=== PATIENT | female | born 2005 | race Caucasian/White ===

== ENCOUNTER 2023-03-15 08:26 | Outpatient (OUT) | payer BC, SELFPAY ==
--- NOTE | 2023-03-15 08:59 | XR_ITS ---
The [address] [address] Patient Name: FREDY PENA MRN: [id number] date: 2005 Sex: F Assigned Patient Location: LAB Current Patient Location: LAB Accession/Order Number: [id number] Exam Date: 03/15/2023 09:00 Report Date: 03/15/2023 09:17 At the request of: TONYA MEMBRENO Procedure: XR chest 2V EXAMINATION: XR chest 2V HISTORY: History Of Pneumonia Z87.01 , follow-up COMPARISON: No relevant comparison available. FINDINGS: LUNGS: No significant pulmonary parenchymal abnormalities. VASCULATURE: No increased pulmonary vasculature. PLEURA: No pneumothorax, effusion, or pleural thickening. CARDIAC: No cardiomegaly or cardiac silhouette abnormality. MEDIASTINUM: No visible mass or adenopathy. BONES: No fracture or visible bone lesion. OTHER: Negative. IMPRESSION: 1. Normal examination. Electronically authenticated by: HEBER LORENZANA Date: 03/15/2023 09:17
[2023-03-15 09:15] LABS: Basophils Absolute Auto 0.1 10^3/uL (0.0-0.1); Basophils Percent Auto 0.9 % (0.2-2.0); Eosinophils Absolute Auto 0.5 10^3/uL (0.0-0.7); Eosinophils Percent Auto 9.7 % (0.9-7.0); Hematocrit 42.8 % (36.0-48.0); Immature Granulocytes Abs Auto 0.02 10^3/uL (0.00-0.03); Immature Granulocytes Pct Auto 0.4 % (0.0-0.5); Lymphocytes Absolute Auto 1.4 10^3/uL (1.2-3.8); Lymphocytes Percent Auto 25.8 % (20.5-60.0); Mean Corpuscular HGB Conc 32.7 g/dL (29.9-35.2); Mean Corpuscular Hemoglobin 28.6 pg (26.7-34.0); Mean Corpuscular Volume 87.3 fL (81.0-99.0); Mean Platelet Volume 10.3 fL (9.5-13.5); Monocytes Absolute Auto 0.7 10^3/uL (0.3-0.8); Monocytes Percent Auto 12.2 % (1.7-12.0); Neutrophils Absolute Auto 2.7 10^3/uL (1.4-6.5); Nucleated Red Blood Cells 0; Platelet Count 222 10^3/uL (150-450); Red Cell Distribution Width 13.1 % (11.0-15.0); White Blood Count 5.3 10^3/uL (4.0-11.0)
[2023-03-15 09:37] LABS: Alanine Aminotransferase 25 U/L (14-59); Albumin Globulin Ratio 1.2; Albumin Level 4.3 g/dL (3.4-5.0); Alkaline Phosphatase 78 U/L (46-116); Anion Gap 12.6; Aspartate Amino Transferase 17 U/L (15-37); BUN Creatinine Ratio 16.8; Bilirubin Total 2.1 mg/dL (0.2-1.0); Calcium 9.1 mg/dL (8.5-10.1); Carbon Dioxide 29.6 mmol/L (21.0-32.0); Chloride 104 mmol/L (98-107); Estimated GFR (African America >60 (>=60); Estimated GFR (Non-African Ame >60 (>=60); Globulin 3.6 g/dL; Glucose 86 mg/dL (74-106); Potassium 4.2 mmol/L (3.5-5.1); Sodium 142 mmol/L (136-145); Total Protein 7.9 g/dL (6.4-8.2)
[2023-03-15 09:49] LABS: Thyroid Stimulating Hormone 34.189 uIU/mL (0.358-3.740)
[2023-03-16 04:12] LABS: Immunoglobulin A, Qn 130 mg/dL (87-352)
[2023-03-16 15:12] LABS: t-Transglutaminase (tTG) IgA <2 U/mL (0-3)
== END 2023-03-15 08:27 ==
PROVIDERS: PCP Internal Medicine; Visit Provider Internal Medicine
DX: Z00.00 Encounter for general adult medical examination without abnormal findings (principal); Z87.01 Personal history of pneumonia (recurrent)
CPT/HCPCS: 36415; 71046; 80053; 82728; 82784; 84443; 85025; 86364

== ENCOUNTER 2023-03-27 12:46 | Outpatient (OUT) | payer BC, SELFPAY ==
[2023-03-27 13:36] LABS: Thyroid Stimulating Hormone 25.757 uIU/mL (0.358-3.740)
[2023-03-27 14:26] LABS: Free T4 0.55 ng/dL (0.76-1.46)
[2023-03-28 08:12] LABS: Thyroid Peroxidase (TPO) Ab 556 IU/mL (0-34)
== END 2023-03-27 12:47 ==
LOC: LAB 12:48
PROVIDERS: PCP Internal Medicine; Visit Provider Internal Medicine
DX: R79.89 Other specified abnormal findings of blood chemistry (principal)
CPT/HCPCS: 36415; 84439; 84443; 86376

== ENCOUNTER 2023-05-03 12:47 | Outpatient (OUT) | payer BC, SELFPAY | END 2023-05-03 12:48 | disposition home or self-care (01) | LOC: LAB 12:48 | PROVIDERS: PCP Internal Medicine; Visit Provider Internal Medicine | DX: R79.89 Other specified abnormal findings of blood chemistry (principal) | CPT/HCPCS: 36415; 84443 ==

== ENCOUNTER 2023-07-27 11:27 | Outpatient (OUT) | payer BC, SELFPAY ==
[2023-07-27 12:21] LABS: Basophils Absolute Auto 0.1 10^3/uL (0.0-0.1); Basophils Percent Auto 0.9 % (0.2-2.0); Eosinophils Absolute Auto 0.7 10^3/uL (0.0-0.7); Eosinophils Percent Auto 11.9 % (0.9-7.0); Hematocrit 42.3 % (36.0-48.0); Hemoglobin 13.6 g/dL (12.0-16.0); Immature Granulocytes Abs Auto 0.01 10^3/uL (0.00-0.03); Immature Granulocytes Pct Auto 0.2 % (0.0-0.5); Lymphocytes Absolute Auto 1.4 10^3/uL (1.2-3.8); Mean Corpuscular HGB Conc 32.2 g/dL (29.9-35.2); Mean Corpuscular Hemoglobin 28.8 pg (26.7-34.0); Mean Corpuscular Volume 89.6 fL (81.0-99.0); Mean Platelet Volume 10.7 fL (9.5-13.5); Monocytes Absolute Auto 0.6 10^3/uL (0.3-0.8); Monocytes Percent Auto 10.5 % (1.7-12.0); Neutrophils Absolute Auto 2.9 10^3/uL (1.4-6.5); Neutrophils Percent Auto 51.5 % (43.0-75.0); Platelet Count 225 10^3/uL (150-450); Red Blood Count 4.72 10^6/uL (4.20-5.40); Red Cell Distribution Width 12.3 % (11.0-15.0); White Blood Count 5.6 10^3/uL (4.0-11.0)
[2023-07-27 13:36] LABS: Percent Iron Saturation 24.8 %
[2023-07-27 13:44] LABS: Thyroid Stimulating Hormone 0.619 uIU/mL (0.358-3.740)
[2023-07-27 13:56] LABS: Free T4 1.14 ng/dL (0.76-1.46)
[2023-07-28 07:07] LABS: Triiodothyronine (T3) 95 ng/dL (71-180)
== END 2023-07-27 11:28 | disposition home or self-care (01) ==
PROVIDERS: PCP Internal Medicine; Visit Provider Internal Medicine
DX: E06.3 Autoimmune thyroiditis (principal); L65.9 Nonscarring hair loss, unspecified; R53.83 Other fatigue
CPT/HCPCS: 36415; 82607; 82728; 83540; 83550; 84439; 84443; 84480; 85025

== ENCOUNTER 2024-03-04 15:18 | Outpatient (OUT) | payer BC, SELFPAY ==
[2024-03-04 15:34] LABS: Basophils Absolute Auto 0.1 10^3/uL (0.0-0.1); Basophils Percent Auto 0.8 % (0.2-2.0); Eosinophils Absolute Auto 0.5 10^3/uL (0.0-0.7); Hematocrit 40.2 % (36.0-48.0); Hemoglobin 13.2 g/dL (12.0-16.0); Immature Granulocytes Abs Auto 0.02 10^3/uL (0.00-0.03); Immature Granulocytes Pct Auto 0.3 % (0.0-0.5); Lymphocytes Absolute Auto 1.5 10^3/uL (1.2-3.8); Lymphocytes Percent Auto 18.4 % (20.5-60.0); Mean Corpuscular HGB Conc 32.8 g/dL (29.9-35.2); Mean Corpuscular Hemoglobin 28.7 pg (26.7-34.0); Mean Corpuscular Volume 87.4 fL (81.0-99.0); Mean Platelet Volume 10.3 fL (9.5-13.5); Monocytes Absolute Auto 0.9 10^3/uL (0.3-0.8); Monocytes Percent Auto 11.9 % (1.7-12.0); Neutrophils Absolute Auto 4.9 10^3/uL (1.4-6.5); Neutrophils Percent Auto 62.6 % (43.0-75.0); Platelet Count 215 10^3/uL (150-450); Red Cell Distribution Width 12.6 % (11.0-15.0); White Blood Count 7.9 10^3/uL (4.0-11.0)
[2024-03-04 16:19] LABS: Alanine Aminotransferase 21 U/L (14-59); Albumin Globulin Ratio 1.2; Alkaline Phosphatase 80 U/L (46-116); Anion Gap 12.6; Aspartate Amino Transferase 13 U/L (15-37); BUN Creatinine Ratio 19.1; Bilirubin Total 2.2 mg/dL (0.2-1.0); Calcium 9.5 mg/dL (8.5-10.1); Carbon Dioxide 26.4 mmol/L (21.0-32.0); Chloride 105 mmol/L (98-107); Estimated GFR (African America >60 (>=60); Estimated GFR (Non-African Ame >60 (>=60); Globulin 3.3 g/dL; Glucose 84 mg/dL (74-106); Sodium 140 mmol/L (136-145); Thyroid Stimulating Hormone 0.278 uIU/mL (0.358-3.740); Total Protein 7.3 g/dL (6.4-8.2)
[2024-03-04 16:24] LABS: Percent Iron Saturation 28.6 %
== END 2024-03-04 15:19 | disposition home or self-care (01) ==
LOC: LAB 15:19
PROVIDERS: PCP Internal Medicine; Visit Provider Internal Medicine
DX: Z00.00 Encounter for general adult medical examination without abnormal findings (principal)
CPT/HCPCS: 36415; 80053; 82607; 82728; 83540; 83550; 84443; 85025

== ENCOUNTER 2025-03-30 09:35 | Outpatient (OUT) | payer BC, SELFPAY ==
[2025-03-30 09:55] LABS: Basophils Absolute Auto 0.1 10^3/uL (0.0-0.1); Basophils Percent Auto 1.3 % (0.2-2.0); Eosinophils Absolute Auto 0.4 10^3/uL (0.0-0.7); Eosinophils Percent Auto 7.2 % (0.9-7.0); Hematocrit 41.4 % (36.0-48.0); Immature Granulocytes Abs Auto 0.01 10^3/uL (0.00-0.03); Immature Granulocytes Pct Auto 0.2 % (0.0-0.5); Lymphocytes Absolute Auto 1.7 10^3/uL (1.2-3.8); Lymphocytes Percent Auto 32.2 % (20.5-60.0); Mean Corpuscular HGB Conc 33.8 g/dL (29.9-35.2); Mean Corpuscular Volume 85.9 fL (81.0-99.0); Mean Platelet Volume 10.2 fL (9.5-13.5); Monocytes Absolute Auto 0.6 10^3/uL (0.3-0.8); Neutrophils Absolute Auto 2.5 10^3/uL (1.4-6.5); Neutrophils Percent Auto 47.1 % (43.0-75.0); Platelet Count 193 10^3/uL (150-450); Red Blood Count 4.82 10^6/uL (4.20-5.40); Red Cell Distribution Width 12.3 % (11.0-15.0); White Blood Count 5.3 10^3/uL (4.0-11.0)
--- OUTSIDE RECORDS SUMMARY | 2025-03-30 10:00 | XMS_ITS | CCD ---
Author Organization [facility] Care Team Providers Care Portainer Operator Name Role Phone DR JOSÉ MIGUEL ZARATE Primary Care Unavailable REQUEST, NONE LISTED Attending Unavaila ble REQUEST, NONE LISTED Consulting Unavaila ble REQUEST, NONE LISTED Admitting Unavaila ble ELLIOT, DR JOSÉ MIGUEL Glass Primary Care Unavailable REQUEST, NONE LISTED Attending Unavaila ble REQUEST, NONE LISTED Consulting Unavaila ble REQUEST, NONE LISTED Admitting Unavaila ble Luis Carlos Loco Unavailable Medications Current Medications Medication Drug Class(es) Dates Sig (Normalized) Sig (Original) 24 hr amphetamine aspartate 2.5 mg / amphetamine sulfate 2.5 mg / dextroamphetamine saccharate 2.5 mg / dextroamphetamine sulfate 2.5 mg extended release oral capsule (11 sources) Central Nervous System Stimulant Start: 12-27-2023 End: 12-27-2023 take 1 capsule by mouth once daily, then take 1 capsule by mouth every twenty-four hours Dextroamphetamin e-Amphetamine (Adderall Xr) 10 mg capsule,extended release 24hr Active 10 MG PO Daily 90 90 December 27, 2023 Start: 09-09-2023 take 1 capsule by mo [facility] every twenty-four hours Adderall XR 10 MG 1 capsule in the morning Orally Once a day for 30 days Aug, Active Start: 06-11-2023 take 1 capsule by mo [facility] every twenty-four hours Adderall XR 10 MG 1 capsule in the morning Orally Once a day for 30 days May, Active Start: 06-07-2023 take 1 capsule by mo [facility] every twenty-four hours Adderall XR 10 MG 1 capsule in the morning Orally Once a day for 30 days May, Active atomoxetine 40 mg oral capsule (9 sources) Norepinephrine Reuptake Inhibitor Start: 04-05-2023 take 1 capsule by mouth every twenty-four hours Strattera 40 MG 1 capsule in the morning Orally Once a day Mar, Active doxycycline hyclate 100 mg oral tablet (7 sources) Tetracycline-class Drug Start: 04-27-2022 take 1 capsule by mouth twice daily Doxycycline Hyclate 100 MG Doxycycline Hyclate 100MG, 1 (one) Capsule twice daily # 20, 04/27/2022, Ref. x5. Active Oral twice daily Apr, Active Doxycycline Hycl ate 100 mg TAKE 1 CAPSULE BY MOUTH TWICE DAILY FOR 10 DAYS for 10 Active eletriptan 40 mg oral tablet (2 sources) Serotonin-1b and Serotonin-1d Receptor Agonist Start: 07-10-2024 End: 07-14-2024 take 1 tablet by mouth every two hours Eletriptan 40 mg tablet Active 0 PO .COMPLEX 12 July 14, 2024 2:26pm take 1 tab at onset of headache; if no relief, february repeat 1 tab after at least 2 hrs; max = 2 tabs/24 hrs PO levothyroxine sodium 0.05 mg oral tablet (20 sources) l-Thyroxine Start: 03-04-2024 take 1 tablet by mouth once daily Levothyroxine 50 mcg tablet Active 50 MCG PO Daily March 04, 2024 1:55pm Start: 02-27-2024 End: 03-04-2024 take 1 tablet by mouth once daily Levothyroxine 50 mcg tablet Discontinued 0 .ROUTE .COMPLEX February 27, 2024 6:43am March 04, 2024 1:55pm TAKE 1 TABLET BY MOUTH DAILY Start: 12-27-2023 End: 02-27-2024 take 1 tablet by mouth once daily Levothyroxine 50 mcg tablet Discontinued 50 MCG PO Daily December 27, 2023 12:37pm February 27, 2024 6:43am Start: 04-05-2023 take 1 tablet by [place] th once daily in the morning Levothyroxine Sodium 50 MCG 1 tablet in the morning on an empty stomach Orally Once a day for 90 days Mar, Active tretinoin 0.25 mg/ml topical cream (1 source) Retinoid Start: 10-17-2024 Tretinoin 0.02 5 % cream Active APPLIC TOPICAL October 17, 2024 12:00am Problems Active Problems Problem Classification Problem Date Documented Date Episodic/Chronic Acute bronchitis (2 sources) Acute bronchitis; Translations: [Acute bronchitis due to other specified organisms] Episodic Asthma (20 sources) Exercise-induced asthma; Translations: [Exercise induced bronchospasm] Chronic Attention-deficit, conduct, and disruptive behavior disorders (5 sources) Attention-deficit hyperactivity disorder, predominantly inattentive type Chronic Bacterial infection; unspecified site (1 source) Methicillin susceptible Staphylococcus aureus infection as the cause of diseases classified elsewhere Episodic Disorders usually diagnosed in infancy, childhood, or adolescence (20 sources) Attention deficit hyperactivity disorder, predominantly inattentive type; Translations: [Other specified behavioral and emotional disorders with onset usually occurring in childhood and adolescence] 03-03-2024 Chronic Headache; including migraine (3 sources) Migraine; Translations: [Migraine, unspecified, not intractable, without status migrainosus] 07-10-2024 Chronic Immunizations and screening for infectious disease (3 sources) Vaccination given; Translations: [Encounter for immunization] 10-17-2024 Episodic Malaise and fatigue (1 source) Other fatigue Episodic Other lower respiratory disease (2 sources) Personal history of pneumonia (recurrent) Episodic Other skin disorders (14 sources) Alopecia areata; Translations: [Alopecia areata, unspecified] Episodic Other skin disorders (1 source) Follicular disorder, unspecified Episodic Other skin disorders (1 source) Nonscarring hair loss, unspecified Episodic Other upper respiratory infections (1 source) Acute pharyngitis, unspecified; Translations: [Acute pharyngitis] 10-17-2024 Episodic Residual codes; unclassified (1 source) Family history of other diseases of the digestive system Episodic Skin and subcutaneous tissue infections (4 sources) Cellulitis of finger; Translations: [Cellulitis of unspecified finger] Onset: 01-01-2018 Episodic Thyroid disorders (20 sources) Owen thyroiditis; Translations: [Autoimmune thyroiditis] Chronic Past or Other Problems Problem Classification Problem Date Documented Date Episodic/Chronic Acute and chronic tonsillitis (2 sources) Acute tonsillitis; Translations: [Acute tonsillitis, unspecified] Onset: 03-14-2015 Episodic Allergic reactions (2 sources) Contact dermatitis; Translations: [Unspecified contact dermatitis, unspecified cause] Onset: 06-07-2016 Episodic Nutritional deficiencies (2 sources) Vitamin D deficiency; Translations: [Vitamin D deficiency, unspecified] Resolved: 03-01-2022 Chronic Other ear and sense organ disorders (2 sources) Otalgia; Translations: [Otalgia, right ear] Onset: 09-18-2016 Episodic Other screening for suspected conditions (not mental disorders or infectious disease) (4 sources) Other specified abnormal findings of blood chemistry; Translations: [Encounter for screening for diseases of the blood and blood-forming organs and certain disorders involving the immune mechanism] Resolved: 03-01-2022 Episodic Other skin disorders (2 sources) Non-scarring alopecia; Translations: [Other specified nonscarring hair loss] Resolved: 03-01-2022 Episodic Otitis media and related conditions (2 sources) Non-suppurative otitis media; Translations: [Unspecified nonsuppurative otitis media, right ear] Resolved: 06-29-2021 Episodic Results Test Name Value Interpretation Reference Range Facil ity No Panel InformationOrdered By: Anna Marie Griffin on 10-17-2024 Quick Strep (POC) [facility] Vital Signs Date Time Vital Sign Value Performing Clinician Facility 10-17-2024 09:48-0500 Body height 170.18 cm [facility] 10-17-2024 09:48-0500 Body mass index (BMI) [Ratio] 20.8 kg/m2 [facility] 10-17-2024 09:48-0500 Body temperature 100.6 [degF] [facility] 10-17-2024 09:48-0500 Body weight 60.32 kg [facility] 10-17-2024 09:48-0500 Heart rate 109 /min [facility] 10-17-2024 09:48-0500 Respiratory rate 19 /min [facility] 10-17-2024 09:48-0500 SaO2% (BldA) [Mass fraction] 98 % [facility] 07-10-2024 11:02-0400 Body mass index (BMI) [Ratio] 21.1 kg/m2 [facility] 07-10-2024 11:02-0400 Diastolic blood pressure 64 mm[Hg] [facility] 07-10-2024 11:02-0400 Heart rate 87 /min [facility] 07-10-2024 11:02-0400 Systolic blood pressure 99 mm[Hg] [facility] 07-08-2024 07:00-0400 Body height 170.18 cm [facility] 07-08-2024 07:00-0400 Body weight 61.23 kg [facility] 03-04-2024 14:55-0400 Body height 170.18 cm [facility] 03-04-2024 14:55-0400 Body mass index (BMI) [Ratio] 20.9 kg/m2 [facility] 03-04-2024 14:55-0400 Body weight 60.55 kg [facility] 03-04-2024 14:55-0400 Diastolic blood pressure 66 mm[Hg] [facility] 03-04-2024 14:55-0400 Heart rate 84 /min [facility] 03-04-2024 14:55-0400 Respiratory rate 12 /min [facility] 03-04-2024 14:55-0400 Systolic blood pressure 96 mm[Hg] [facility] 05-08-2023 15:30-0400 Body weight 63.05 kg Luis Carlos Ball Other [facility] [employer] Other 05-08-2023 15:30-0400 Diastolic blood pressure 61 mm[Hg] Luis Carlos Ball Other [facility] [employer] Other 05-08-2023 15:30-0400 Respiratory rate 12 /min Luis Carlos Ball Other [facility] [employer] Other 05-08-2023 15:30-0400 Systolic blood pressure 96 mm[Hg] Luis Carlos Ball Other [facility] [employer] Other 03-13-2023 14:00-0400 Body height 170.18 cm Luis Carlos Ball Other [facility] [employer] Other 03-13-2023 14:00-0400 Body mass index (BMI) [Ratio] 21.92 kg/m2 Luis Carlos Ball Other [facility] [employer] Other 03-13-2023 14:00-0400 Body weight 63.5 kg Luis Carlos Loco Other [facility] Other 03-13-2023 14:00-0400 Diastolic blood pressure 62 mm[Hg] Luis Carlos Loco Other [facility] Other 03-13-2023 14:00-0400 Respiratory rate 12 /min Luis Carlos Loco Other [facility] Other 03-13-2023 14:00-0400 Systolic blood pressure 99 mm[Hg] Luis Carlos Loco Other [facility] Other Encounters Encounter Date Encounter Type Care Provider Facility Start: 10-17-2024 End: 10-17-2024 ambulatory [facility] Work Phone: Start: 10-17-2024 End: 10-17-2024 Patient encounter procedure [facility] Physician [facility] Work Phone: Start: 07-10-2024 End: 07-10-2024 ambulatory [facility] Work Phone: Start: 07-10-2024 End: 07-10-2024 Patient encounter procedure [facility] Physician [facility] Work Phone: Start: 03-04-2024 End: 03-04-2024 ambulatory [facility] Work Phone: Start: 03-04-2024 End: 03-04-2024 Encounter for general adult medical examination without abnormal findings [facility] Start: 03-04-2024 End: 03-04-2024 Patient encounter procedure [facility] Physician [facility] Work Phone: Start: 12-27-2023 Non-patient / Non-visit [facility] Physician [facility] Work Phone: Start: 09-09-2023 End: 09-09-2023 ambulatory Luis Carlos Loco Other [facility] Other Start: 09-09-2023 Telephone encounter Luis Carlos [facility] Start: 07-29-2023 End: 07-29-2023 ambulatory Luis Carlos Ball Other [facility] Other Start: 07-29-2023 Telephone encounter Luis Carlos [facility] Start: 07-23-2023 End: 07-23-2023 ambulatory Luis Carlos Ball Other [facility] Other Start: 07-23-2023 Telephone encounter Luis Carlos [facility] Start: 06-11-2023 End: 06-11-2023 ambulatory Luis Carlos Ball Other [facility] Other Start: 06-11-2023 Telephone encounter Luis Carlos Ball [facility] Start: 06-07-2023 End: 06-07-2023 ambulatory Luis Carlos Ball Other [facility] Other Start: 06-07-2023 Office outpatient vi sit 15 minutes Luis Carlos Ball [facility] Start: 05-09-2023 End: 05-09-2023 ambulatory Luis Carlos Ball Other [facility] Other Start: 05-09-2023 Telephone encounter Luis Carlos Ball [facility] Start: 05-08-2023 End: 05-08-2023 ambulatory Luis Carlos Ball Other [facility] Other Start: 05-08-2023 Office outpatient vi sit 15 minutes Luis Carlos Ball [facility] Start: 04-30-2023 End: 04-30-2023 ambulatory Luis Carlos Ball Other [facility] Other Start: 04-30-2023 Telephone encounter Luis Carlos Ball [facility] Start: 04-03-2023 End: 04-03-2023 ambulatory Luis Carlos Ball Other [facility] Other Start: 04-03-2023 Telephone encounter Luis Carlos Loco [facility] Start: 03-27-2023 End: 03-27-2023 ambulatory Luis Carlos Loco Other [facility] Other Start: 03-27-2023 Telephone encounter Luis Carlos CUMMINS [facility] Start: 03-13-2023 End: 03-13-2023 ambulatory Luis Carlos Loco Other [facility] Other Start: 03-13-2023 Encounter for genera l adult medical examination without abnormal findings Luis Carlos Loco [facility] Start: 03-13-2023 Periodic preventive med est patient 18-39 yrs Luis Carlos Loco [facility] Start: 03-13-2023 Telephone encounter Luis Carlos Loco [facility] Start: 02-08-2021 End: 02-09-[address] JOSÉ MIGUEL ZARATE Facility:[facility] Start: 01-18-2021 End: 01-19-[address] JOSÉ MIGUEL ZARATE Facility:[facility] Start: 04-19-2020 Child health medical examination Luis Carlos Loco Other [facility] Other Procedures Date Procedure Procedure Detail Performing Clinician Start: 10-17-2024 Quick Strep (POC) Plan of Treatment Date Care Activity Detail Author Comprehensive metabo lic 2000 panel - Serum or Plasma [facility] enter [facility] Immunizations Immunization Date Immunization Notes Care Provider Fa cility 04-19-2020 meningococcal B, unspecified formulation Luis Carlos Loco Other [facility] Payers Date Payer Category Payer Self-pay 1961 Self-pay [id number] [facility] [id number] Unknown [id number] Unknown [id number] Unknown [employer] [id number] Social History Date Type Detail Facility Sex Assigned At [facility] [employer] Other Start: 2005 Sex Assigned At [facility] Work Phone: Start: 10-17-2024 Sex Female (finding) [facility] Clinical Notes 03-13-2023 to 09-09-2023 Note Date & Type Note Facility 09-09-2023 Evaluation note Encounter Date Diagnosis Assessment Notes Aug, Attention deficit hyperactivity disorder (ADHD), predominantly inattentive type (ICD-10 - F90.0) Aug, Autoimmune thyroiditis (ICD-10 - E06.3) [facility] Other 10-10-2023 Evaluation note* Encounter Date Diagnosis Assessment Notes Treatment Notes Treatment Clinical Notes Jul, Hair thinning (ICD-10 - L65.9) Jul, Autoimmune thyroiditis (ICD-10 - E06.3) Jul, Fatigue, unspecified type (ICD-10 - R53.83) [facility] Other 08-29-2023 Evaluation note* Encounter Date Diagnosis Assessment Notes Treatment Notes Treatment Clinical Notes May, Attention deficit hyperactivity disorder (ADHD), predominantly inattentive type (ICD-10 - F90.0) [facility] Other 08-25-2023 Evaluation note* Encounter Date Diagnosis Assessment Notes Treatment Notes Treatment Clinical Notes May, Other specified hypothyroidism (ICD-10 - E03.8) May, Autoimmune 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 Denies tremors, worsening anxiety or insomnia. May, Attention deficit hyperactivity disorder (ADHD), predominantly inattentive type (ICD-10 - F90.0) Prefers stimulant formulation over the nonstimulant. She will take daily and monitor for s/s excessive stimulant effect [facility] Other 07-27-2023 Evaluation note* Encounter Date Diagnosis Assessment Notes Treatment Notes Treatment Clinical Notes Apr, Autoimmune thyroiditis (ICD-10 - E06.3) [facility] Other 07-26-2023 Evaluation note* Encounter Date Diagnosis Assessment Notes Treatment Notes Treatment Clinical Notes Apr, Other specified hypothyroidism (ICD-10 - E03.8) Apr, Autoimmune thyroiditis (ICD-10 - E06.3) TSH euthyroid level Recheck TSH in 3 mo Energy level will gradually return. Healthy diet, exercise, consistent sleep routine. Apr, Mild intermittent asthma without complication (ICD-10 - J45.20) No exacerbations, triggered by seasonal allergens. Apr, Attention deficit hyperactivity disorder (ADHD), predominantly inattentive type (ICD-10 - F90.0) Healthy diet, keep active, exercise. Strattera has improved attention deficit symptoms w/ mild Apr, Follicular disorder, unspecified (ICD-10 - L73.9) Apr, Methicillin susceptible Staphylococcus aureus infection as the cause of diseases classified elsewhere (ICD-10 - B95.61) Antibacterial cleansers. Doryx for breakthrough infection. 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) Mar, Attention deficit hyperactivity disorder (ADHD), predominantly inattentive type (ICD-10 - F90.0) [facility] Other 06-14-2023 Evaluation note* Encounter Date Diagnosis Assessment Notes Treatment Notes Treatment Clinical Notes Mar, Elevated TSH (ICD-10 - R79.89) [facility] Other 05-31-2023 Evaluation note* Encounter Date Diagnosis Assessment Notes Treatment Notes Treatment Clinical Notes February, History of pneumonia (ICD-10 - Z87.01) [facility] Other 05-31-2023 Evaluation note* Encounter Date Diagnosis Assessment Notes Treatment Notes Treatment Clinical Notes February, Wellness examination (ICD-10 - Z00.00) Healthy diet and exercise. Reviewed age-appropriate preventive testing recommended. February, Exercise-induced asthma (ICD-10 - J45.990) KAYLI as needed. No acute exacerbations except w/ recent bout of pneumonia February, Family history of celiac disease (ICD-10 - Z83.79) Has symptoms suggestive of Celiac disease, recommend testing February, History of pneumonia (ICD-10 - Z87.01) Symptoms resolved. CXR to document clearance [facility] Other Evaluation noteNort [employer] Other Evaluation noteNo InformationNomissouri [facility] [employer] Other Evaluation note* Diagnosis Onset Date Resolution Status ADD (attention deficit disorder) acute Hypothyroid acute Wellness examination noneact marianne [facility] Work Phone: Evaluation note* Diagnosis Onset Date Resolution Status Migraine headache acute [facility] Work Phone: evaluation note* Diagnosis Onset Date Resolution Status Admit Date Contact with or suspected exposure to severe acute respiratory syndrome noneactive October 9:18am Sore throat noneactive October 17, 2024 9:18am [facility] Work Phone: History general Narrative - Reported* Type Description Date Medical History ADD (attention deficit disorder) without hyperactivity Medical History Alopecia areata [facility] [employer] Other History general Narrative - [facility]orted[facility] [employer] Other History general Narrative - Reported* Type Description Date Medical History ADD (attention deficit disorder) without hyperactivity Medical History Alopecia areata Surgical History Problem Title : Non- Contributory Past Surgical History, Problem Status : Active, Surgical History Problem Title : past surgical history reviewed, Problem Description : past surgical history reviewed, Problem Comment : reviewed - no changes required, Problem Status : Resolved, Hospitalization History see surgical history [facility] Other Summary Purpose Family History Relationship Condition Age at Onset Recorded Date/T keegan Not Specified Family history of thyroid disease Unknow n Relationship Condition Age at Onset Recorded Date/T keegan mother Family history of thyroid disease Unknown Advance Directives Advance Directive Response Recorded Date/ Time Advance Directives No March 03 2:22pm Advance Directive Response Recorded Date/ Time Advance Directives No March 03 1:22pm Chief Complaint and Reason for Visit Chief Complaint Amb Documentation wellness Reason for Visit ADD (attention defic it disorder) Hypothyroid Wellness examination Chief Complaint headaches Reason for Visit Migraine headache Chief Complaint Admit Date Cough, congestion, fevers October 17 025 9:18am Reason for Visit Admit Date Contact with or suspected ex posure to severe acute respiratory syndrome October 17, 2024 9:18am Sore throat October 17, 2024 9: 18am Additional Source Comments INFORMATION SOURCE (unrecogn ized section and content) DATE CREATED AUTHOR 02/07/2021 [facility] REASON FOR VISIT (unrecogniz ed section and content) Labs?medication change [phone] monthXray, lab resultsdiscussion about blood work and celiac diseas Care Teams (unrecognized sec tion and content) Team Status: Active Member Role Status Dates Luis Carlos Loco , Primary Care Provider Active Team Status: Inactive Member Role Status Dates Luis Carlos Loco DO Primary Care Provide r, Attending Provider Active Start: July 10, 2024 End: July 10, 2024 Team Status: Active Member Role Status Dates Luis Carlos Loco DO Primary Care Provider Active Start: December 27, 2023 GERMÁN Snyder Attending Provider Active Start : December 27, 2023 Team Status: Inactive Member Role Status Dates Luis Carlos Loco DO Primary Care Provide r, Attending Provider Active Start: March 04, 2024 End: March 04, 2024 Team Status: Inactive Member Role Status Dates Luis Carlos Loco DO Primary Care Provider Active Start: October 17, 2024 End: October 17, 2024 MACIEJ Smith RN EDUCATIONAL DIAGNOSTICIAN-C Attending Provider Active Start: October 17, 2024 End: October 17, 2024 Goals (unrecognized section and content) Goals may be documented in a n alternate section FOR RECORDS PERTAINING TO PATIENTS WHO ARE OR HAVE BEEN ENROLLED IN A CHEMICAL DEPENDENCY/SUBSTANCEABUSE PROGRAM, SOME INFORMATION MAY BE OMITTED. This clinical summary was aggregated from multiple sources. Caution should be exercised in using it in the provision of clinical care. This summary normalizes information from multiple sources, and as a consequence, information in this document may materially change the coding, format and clinical context of patient data. In addition, data may be omitted in some cases. CLINICAL DECISIONS SHOULD BE BASED ON THE PRIMARY CLINICAL RECORDS. [facility], [facility]. provides no warranty or guarantee of the accuracy or completeness of information in this document.
[2025-03-30 10:42] LABS: Alanine Aminotransferase 24 U/L (14-59); Albumin Globulin Ratio 1.3; Alkaline Phosphatase 60 U/L (46-116); Anion Gap 14.7; Aspartate Amino Transferase 12 U/L (15-37); BUN Creatinine Ratio 23.2; Bilirubin Total 1.8 mg/dL (0.2-1.0); Calcium 9.5 mg/dL (8.5-10.1); Carbon Dioxide 26.5 mmol/L (21.0-32.0); Chloride 105 mmol/L (98-107); Cholesterol 186 mg/dL (<=200); Estimated GFR (African America >60 (>=60 mL/min/1.73m^2); Estimated GFR (Non-African Ame >60 (>=60 mL/min/1.73m^2); Globulin 3.1 g/dL; Glucose 82 mg/dL (74-106); HDL Cholesterol 47 mg/dL (40-60); LDL Cholesterol Calculated 126.2 mg/dL; Potassium 4.2 mmol/L (3.5-5.1); Sodium 142 mmol/L (136-145); Thyroid Stimulating Hormone 2.728 uIU/mL (0.358-3.740); Total Protein 7.1 g/dL (6.4-8.2); Triglycerides 64 mg/dL (<=150); VLDL CHOLESTEROL 12.8 mg/dL
== END 2025-03-30 09:36 | disposition home or self-care (01) ==
LOC: LAB 09:35
PROVIDERS: PCP Internal Medicine; Visit Provider Internal Medicine
DX: Z00.00 Encounter for general adult medical examination without abnormal findings (principal)
CPT/HCPCS: 80053; 80061; 84443; 85025